=== PATIENT | female | born 2005 | race Caucasian/White ===

== ENCOUNTER 2023-11-20 14:30 | Emergency (ER) | payer SELFPAY ==
[2023-11-20 14:32] VITALS: BP 106/61
--- NOTE | 2023-11-20 14:51 | ED.GENMED ---
History of Present Illness
General
Chief Complaint: Fever
Source: patient
Time Seen by Provider: 11/20/23 14:39
History of Present Illness
History of Present Illness:
18yoF with no significant past medical history presenting with her family friend for evaluation of a fever. Patient started to experience malaise, fatigue, and nausea yesterday. She then started to feel warm. She continued to feel unwell today and
her friend checked her temperature which was elevated at 104. Patient had a headache earlier today but denies any headache currently. She has not taken anything OTC for her symptoms. Patient is otherwise asymptomatic and denies any sore throat,
vomiting, diarrhea, abdominal pain, cough, rashes, dysuria, shortness of breath. Her sister is also sick with similar symptoms. No recent travel.
Phy Exam
General Physical Exam
General Presentation: well appearing and no apparent distress
General age: appears stated age
General Skin: warm and dry
General Habitus: normal
General Mental: alert
ENT Exam
ENT Exam: TM's normal, pharynx normal, neck supple and normocephalic
Additional ENT: Full ROM of cervical spine without pain
Cardiovascular Exam
Cardiovascular Exam: no edema and tachycardia
Pulmonary Exam
Pulmonary Exam: lungs clear, no respiratory distress, no crackles and no wheezing
Gastrointestinal Exam
Gastrointestinal Exam: non tender, soft and non distended
Can Coma Scale
Eye Opening: Spontaneous
Verbal Response: Oriented
Motor Response: Obeys Commands
GCS Total Score: 15
Skin Exam
Skin Exam: normal color and warm/dry
Psychiatric Exam
Psychiatric Exam: normal mood/affect
Course
Orders/Labs/Results
Orders:
Orders
11/20/23 14:47
COVID-19 Antigen Urgent
Source: Nasal Swab
Influenza A+B Rapid Molecular Urgent
MAYCOL Source: Nasal Swab
Specimen Description:
11/20/23 14:50
Acetaminophen [Tylenol] 1,000 mg PO NOW STA
Ibuprofen [Motrin] 600 mg PO NOW STA
Ondansetron Orally Disint [Zofran Odt (Orally Disintegrating)] 4 mg PO NOW STA
Vital Signs
Initial and Last Documented VS:
Initial Vital Signs
Temp Pulse Resp BP Pulse Ox
103.1 F H 125 22 106/61 95
11/20/23 14:32 11/20/23 14:32 11/20/23 14:32 11/20/23 14:32 11/20/23 14:32
Last Documented Vital Signs
Temp Pulse Resp BP Pulse Ox
102.7 F H 103 16 103/55 97
11/20/23 16:00 11/20/23 16:00 11/20/23 16:00 11/20/23 16:00 11/20/23 16:00
MDM/Problems Addressed
Differential Diagnosis Includes:
18yoF here with a fever x 1 day. Only other symptoms are fatigue and nausea. +Sick contacts. She is febrile to 103.1 on arrival with associated tachycardia. BP stable. She is well appearing in no distress. Exam is reassuring. No focal sources of
infection noted on exam. Tympanic membranes and posterior oropharynx are clear. Neck supple without meningismus. Lungs CTA. Abdomen soft, non-tender.
COVID/flu testing negative. Patient given Tylenol and ibuprofen for fever control. She is symptomatically improved on reassessment and is tolerating PO intake well. Presentation consistent with a viral illness. No indication for hospitalization at
this time. Supportive care discussed including rest, hydration, and PRN antipyretics. Advised f/u with PCP in 2-3 days. Strict ED return precautions discussed. She expressed understanding and is agreeable to plan. Patient discharged in stable
condition.
*Critical Care Note
Total Time (30-74mins, 75-104mins- exclusive of procedures): Not Applicable
ED Attending Note
-
Portions of this chart may have been created with voice recognition software.� Occasional wrong word or��sound alike� substitutions may have occurred due to the inherent limitations of voice recognition software.
Discharge Plan
Departure
Patient Disposition: Home (Routine Discharge)
Date of Disposition: 11/20/23
Time of Disposition: 16:26
Patient with high blood pressure during this ER visit?: No
Discharge Problem:
Fever
Instructions: Fever, Adult (DC), Viral Syndrome (DC)
Referrals:
UNKNOWN - PT DOES,NOT KNOW [Family Provider] -
Activity Restrictions/Additional Instructions:
Drink plenty of fluids and rest. Take Tylenol 650mg and ibuprofen 600mg every 6 hours as needed for fevers.
Please follow-up with your family doctor in 2-3 days. Return to the ER with any new or worsening symptoms.
Interventions
Interventions:
*Risk Screen - Suicide Last Done: 11/20/23 14:33
*General Assessment Last Done: 11/20/23 14:33
*Neglect/Abuse Screening Last Done: 11/20/23 14:33
*ED COVID-19 Vaccine History Last Done: 11/20/23 14:49
ED- Neurological Assessment Last Done: 11/20/23 14:49
ED-Skin Assessment Last Done: 11/20/23 14:49
Discharge Date and Time
Print Language: IRISH
[2023-11-20] MEDS: MOTRIN 600 MG PO (14:59)
[2023-11-20] MEDS: TYLENOL 1000 MG PO (14:59)
[2023-11-20 15:16] LABS: COVID-19 Antigen Negative (Negative)
[2023-11-20 16:00] VITALS: BP 103/55
== END 2023-11-20 16:40 | disposition home or self-care (01) ==
LOC: EMR 14:30
PROVIDERS: EMERGENCY PHYSICIAN Emergency Medicine
DX: R50.9 Fever, unspecified (principal); R53.81 Other malaise; R53.83 Other fatigue; R11.0 Nausea; R51.9 Headache, unspecified; R00.0 Tachycardia, unspecified; Z11.52 Encounter for screening for COVID-19
CPT/HCPCS: 99283; 87502; 87811